=== PATIENT | male | born 1970 | race Caucasian/White ===

== ENCOUNTER 2025-03-31 10:59 | Emergency (ER) | payer OTHER, SELFPAY ==
[2025-03-31 11:03] VITALS: BP 168/100
[2025-03-31 11:31] VITALS: BMI 31.4
[2025-03-31 11:46] VITALS: BP 148/90
[2025-03-31 12:00] VITALS: BP 157/98
[2025-03-31 12:01] LABS: Hematocrit 45.3 % (39.0-52.0); Hemoglobin 15.3 g/dL (13.0-18.0); Mean Corp Hgb Conc. 33.8 g/dL (33.0-37.0); Mean Corpuscular Volume 91.5 fL (80.0-94.0); Nucleated Red Blood Cells % 0 % (-); Platelet Count 199 10^3/uL (130-400); Red Cell Dist. Width 13.1 % (11.5-14.5)
--- NOTE | 2025-03-31 12:04 | ED.GENMED ---
History of Present Illness
General
Chief Complaint: Cardiac Symptoms
Source: patient
Exam Limitations: none
Time Seen by Provider: 03/31/25 11:30
Nursing documentation reviewed up to this point in time: agreed with
History of Present Illness
History of Present Illness:
54-year-old male with a past medical history of hypertension, former smoker who presents to the emergency department for evaluation of multiple complaints chiefly complaining of palpitations. Patient reports onset of symptoms about 2 days ago. He
reports intermittent sensation of palpitations while at rest and this is associated with increased heart rate on his Apple Watch--he says 110-115 usually. He says that today in addition to the palpitations he had a transient bloody nose that lasted
for a few minutes and resolved with tissue packing. He says that he had some associated paresthesias in his extremities. Came to the ER for assessment. He denies any chest pain or shortness of breath. No syncope reported. He denies any other
acute complaints. He denies any personal history of heart disease but says that there is a strong family history of heart disease. He says that he has seen a fire safety manager through [place] previously and all testing has been reportedly normal. He
does note that prior to onset of symptoms he went to a alliance party on Sunday and was smoking marijuana and eating a lot of sugar. Typically though he says he does not use any drugs or drink alcohol.
Past History
Past History
ED Past Medical History: None
Social History
Tobacco: Former smoker
Alcohol: Occasional
Drug: None
Personal:
Living: with family
Employment: Employed
Family History
Family History: Negative Early CAD or Sudden
Review of Systems
Review of Systems
All Other Systems: ROS reviewed and negative except as documented in HPI and ROS
Constitutional: Denies fever
Respiratory: Denies trouble breathing
Cardiac: Reports palpitations; Denies chest pain or syncope
ABD/GI: Denies abdominal pain
: Denies flank pain
Musculoskeletal: Denies neck pain or back pain
Neurological: Reports other (Paresthesias)
Phy Exam
Physical Exam
Physical Exam:
General: Awake, alert, oriented x3; no acute distress
Head: Normocephalic, atraumatic
Eyes: Conjunctiva normal
Nose: No blood noted in the naris bilaterally and no abrasions or other signs of trauma
Throat: Airway intact, handling secretions
Neck: Trachea midline, supple without meningismus
Lungs: Clear to auscultation bilaterally, no wheezing, rales, rhonchi
Heart: Regular rate and rhythm, no murmurs, gallops, or rubs
Abd: Soft, non distended, nontender, no palpable masses
Neuro: Cranial nerves grossly intact, speech fluid, motor and sensory grossly intact
Skin: Warm and dry
Extremities: No edema in extremities, equal pulses in all extremities
Scores
Heart Failure Risk
Heart Failure Risk Score: Not Applicable
Heart Score for Chest Pain Patients
STEMI patient?: Not applicable
Withdrawal Assessment of Alcohol
Withdrawal Assessment Completed?: Not applicable
Course
Orders/Labs/Results
Orders:
Orders
03/31/25 11:04
Electrocardiogram (*1) Urgent
Reason for Study: Tachycardia
EKG- Treatment ONCE
03/31/25 11:46
Comprehensive Metabolic Panel Urgent
TSH Reflex To Free T4 Urgent
03/31/25 11:47
Complete Blood Count/With Diff Urgent
Troponin I Urgent
Abnormal Lab Results
03/31/25
11:46
Glucose 100 H mg/dl
(70-99)
03/31/25 11:47
03/31/25 11:46
Vital Signs
Initial and Last Documented VS:
Initial Vital Signs
Temp Pulse Resp BP Pulse Ox
37.0 C 82 16 168/100 99
03/31/25 11:03 03/31/25 11:03 03/31/25 11:03 03/31/25 11:03 03/31/25 11:03
Last Documented Vital Signs
Temp Pulse Resp BP Pulse Ox
37.0 C 73 15 148/90 98
03/31/25 11:03 03/31/25 11:47 03/31/25 11:47 03/31/25 11:46 03/31/25 12:10
MDM/Problems Addressed
Differential Diagnosis Includes:
Anxiety, dehydration, electrolyte abnormality, dysrhythmia
MDM/Problems Addressed:
54-year-old male presents for evaluation of palpitations and tachycardia over the past few days today had transient nosebleed and paresthesias in extremities. He is hypertensive here which has improved by my assessment. Heart rate in the 70s to
80s. Rest of vitals normal. Physical exam as noted. EKG shows sinus rhythm with no ectopy, no Brugada, no QT prolongation, no delta wave. He says that he has 'worn a monitor' with a fire safety manager in the past with no reported abnormalities. Plan
to check labs including a CBC and a CMP. Check thyroid studies. Can check troponin in abundance of caution very low suspicion for ACS. Will monitor on telemetry here. Reassess after the above.
Labs reviewed: CBC and CMP no clinically significant abnormalities. Troponin undetectable. Thyroid studies normal. His vital signs have normalized, heart rate has consistently been 70s to 80s and sinus on the monitor. Stable for discharge but he
should see cardiology on an outpatient basis may benefit from repeat Holter monitoring. Patient comfortable to this plan. All questions answered.
Acute Exacerbation and/or Progression of Chronic Illness: HTN
*Pulse Oximetry
SaO2: 98
Oxygen Mode of Delivery: Room air
Patient hypoxic: no (98%)
*EKG
Interpreted by ED Provider?: Yes
Heart Rate: 84
Rate: normal
Rhythm: sinus
R[place]way: normal axis
Interval: normal interval
QRS Pattern: normal QRS
Ischemia: no ischemia
*Critical Care Note
Total Time (30-74mins, 75-104mins- exclusive of procedures): Not Applicable
Data Reviewed
Source: patient
ED Attending Note
-
Portions of this chart may have been created with voice recognition software.� Occasional wrong word or��sound alike� substitutions may have occurred due to the inherent limitations of voice recognition software.
Discharge Plan
Departure
Patient Disposition: Home (Routine Discharge)
Date of Disposition: 03/31/25
Time of Disposition: 12:59
Patient with high blood pressure during this ER visit?: Yes
Discharge Problem:
Heart palpitations
Instructions: Palpitations - ED (DC), BLOOD PRESSURE
Prescriptions:
No Action
tadalafil [Cialis] 20 MG tablet
20 mg PO PRN PRN (Reason: .as needed)
Referrals:
Ryland Gonzales MD [Non-Admitting Privileges, Internal Medicine] - Call in 1-3 days for appt
Activity Restrictions/Additional Instructions:
Thank you for visiting the Emergency Department at [facility].
1. Please schedule a follow up appointment as directed. Call first thing tomorrow morning to make an appointment.
2. If indicated, please take your medications as instructed and indicated on discharge paperwork.
3. If any of your symptoms do not improve, or persist, or become more severe within 6-12 hours, please return to the emergency department for further care.
4. Please return to the emergency department if you develop a headache, neck pain/stiffness, fever greater than 100.4F, chest pain, shortness of breath, persistent nausea, vomiting, slurred speech, difficulty walking, numbness/tingling, weakness,
signs of infection or any other symptoms that are worrisome to you.
Please call [phone] if you have any questions.
Interventions
Interventions:
*Risk Screen - Suicide Last Done: 03/31/25 11:05
*General Assessment Last Done: 03/31/25 11:49
*Neglect/Abuse Screening Last Done: 03/31/25 11:05
*ED COVID-19 Vaccine History Last Done: 03/31/25 11:48
*ED Influenza Vaccine History Last Done: 03/31/25 11:48
ED- Pulmonary Assessment Last Done: 03/31/25 11:53
ED- Cardiac Assessment Last Done: 03/31/25 11:53
Discharge Date and Time
Print Language: [id number]
[2025-03-31 12:24] LABS: Troponin I < 0.012 ng/ml
[2025-03-31 12:40] LABS: ALT (SGPT) 40 U/L (0-50); AST (SGOT) 31 U/L (17-59); Albumin 4.6 g/dl (3.5-5.0); Alkaline Phosphatase 75 U/L (38-126); Blood Urea Nitrogen 16 mg/dl (9-20); Calcium 9.3 mg/dl (8.4-10.2); Carbon Dioxide 27 mmol/L (22-30); Chloride 103 mmol/L (98-107); Estimated Creatinine Clearance 110 ml/min; Glucose 100 mg/dl (70-99); Potassium 4.1 mmol/L (3.5-5.1); Sodium 138 mmol/L (135-145); Total Protein 7.8 g/dl (6.3-8.2); eGFR > 60.00
[2025-03-31 13:00] VITALS: BP 148/92
== END 2025-03-31 13:15 | disposition home or self-care (01) ==
LOC: EMR 10:59
PROVIDERS: EMERGENCY PHYSICIAN Emergency Medicine; FAMILY PHYSICIAN Internal Medicine
DX: R00.2 Palpitations (principal); R04.0 Epistaxis; I10 Essential (primary) hypertension; Z87.891 Personal history of nicotine dependence
CPT/HCPCS: 99284; 80053; 84443; 84484; 85025; 93005